=== PATIENT | female | born 1970 | race Caucasian/White ===

== ENCOUNTER → 2021-01-19 | Outpatient (CLI) | payer BC ==
--- NOTE | 2021-01-24 10:08 | RAD ---
PROCEDURE: MG BILAT SCREEN+ALLISON HISTORY: The patient is 50 years old and is seen for Reason: SCREENING / Spl. Instructions: / Histor y: . COMPARISON: April 07, 2014 TECHNIQUE: CC and MLO views of both breasts were obtained. Images were processed by the [employer] computer-aided detection system. DENSITY: The breast tissue is predominantly fatty. FINDINGS: No developing mass, suspicious calcifications or architectural distortion. Small left in ferior axillary lymph node posteriorly. IMPRESSION: Negative. No evidence of malignancy. Recommend annual screening mammograms per [employer] guidelines. She will be due in one year. BI-RADS category 1 Negative Patient entered into a reminder system for annual screening mammogram. Electronically signed by: Demetrius Sellers DO (01/24/2021 10:06 AM) [id number]
== END ==
LOC: MERGE 15:04 → MAMMO 15:04
PROVIDERS: ATTEND Family Medicine
DX: Z12.31 Encounter for screening mammogram for malignant neoplasm of breast (principal)
CPT/HCPCS: 77063; 77067